=== PATIENT | female | born 1980 | race Caucasian/White ===

== ENCOUNTER 2016-10-23 10:11 | Emergency (ER) | payer MEDICAID ==
--- NOTE | 2016-10-23 10:48 | EDM.PDOC ---
ED HPI ENT - General Chief Complaint: ENT Problem Stated Complaint: ABSCESS TOOTH Time Seen by Provider: 10/23/16 10:25 Source: Reports: Patient History Limitations: Reports: No limitations - History of Present Illness INITIAL COMMENTS - FREE TEXT/NARRATIVE: 36 years old smoker come to the ed with a 1 week of swelling of r jaw pain. Pt was seen by her PMD who prescribed Amoxicillin, which did not help. Pt's car broke down and she can not go to her Dentist in [place]. No N/V/D Pt is currently . Pt denied other acute medical issues at this time. Symptom Onset Date: 10/14/16 Symptom Onset Time: 10:00 Timing/Duration: Reports: Week(s): Severity: moderate Quality: Reports: Other (jaw) Improves with: Reports: Cold therapy Worsens with: Reports: Movement Associated symptoms: Reports: denies other symptoms - Related Data Allergies/ADRs: Allergies Allergy/AdvReac Type Severity Reaction Status Date / Time propoxyphene napsylate Allergy Confusion Verified 10/23/16 10:22 [From Darvocet-N] sumatriptan [From Imitrex] Allergy Difficulty Verified 10/23/16 10:22 Breathing sumatriptan succinate Allergy Difficulty Verified 10/23/16 10:22 [From Imitrex] Breathing Home Meds: Home Meds Ibuprofen 800 mg PO TID 04/01/15 [History] Vit37/Iron/Folic Acid [Prenata] 1 tab PO DAILY 04/01/15 [History] FLUoxetine [PROzac] 20 mg PO DAILY 09/16/16 [History] Amoxicillin 500 mg PO TID #30 tablet 10/23/16 [Rx] Omeprazole 40 mg PO DAILY 10/23/16 [History] Past Medical History 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: Reports: 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: Musculoskeletal History: Reports: Arthritis, Fibromyalgia Other Musculoskeletal History: knee scope Neurological History: Reports: None Psychiatric History: Reports: Addiction, Anxiety, Depression Endocrine/Metabolic History: Reports: Diabetes, gestational, Other (see below) Other Endocrine/Metabolic History: had with last Social & Family History - Family History Family Medical History: Noncontributory - Tobacco Use Smoking Status *Q: Current Every Day Smoker Years of Tobacco use: 20 Packs/Tins Daily: 0.5 Used Tobacco, but Quit: No Second Hand Smoke Exposure: Yes - Caffeine Use Caffeine Use: Reports: Coffee - Recreational Drug Use Recreational Drug Use: No ED ROS ENT - Review of Systems Review Of Systems: See Below Constitutional: Reports: no symptoms HEENT: Reports: Dental pain Respiratory: Reports: No Symptoms Cardiovascular: Reports: No symptoms Endocrine: Reports: no symptoms GI/Abdominal: Reports: No symptoms : Reports: no symptoms Musculoskeletal: Reports: no symptoms Skin: Reports: no symptoms Neurological: Reports: No Symptoms Psychiatric: Reports: No symptoms Hematologic/Lymphatic: Reports: no symptoms Immunologic: Reports: no symptoms ED EXAM, ENT - Physical Exam Exam: See Below Exam Limited By: No limitations General Appearance: alert, WD/WN, mild distress Eye Exam: bilateral eye: normal inspection Ears: normal external exam, normal canal, hearing grossly normal Nose: normal inspection, normal mucousa, no blood Mouth/Throat: Gum swelling Head: atraumatic, normocephalic Neck: normal inspection, supple, non-tender, full range of motion Respiratory/Chest: no respiratory distress, lungs clear, normal breath sounds Cardiovascular: normal peripheral pulses, regular rate, rhythm, no edema, no gallop GI/Abdominal: normal bowel sounds, soft, non tender, no organomegaly (Female) Exam: Deferred Rectal (Female) Exam: Deferred Back: normal inspection, full range of motion Extremities: normal inspection, normal range of motion, non-tender Neurological: alert, oriented, CN II-XII intact, normal cognition, normal gait Course - Vital Signs Text/Narrative:: 36 years old smoker come to the ed with a 1 week of swelling of r jaw pain. Pt was seen by her PMD who prescribed Amoxicillin, which did not help. Pt's car broke down and she can not go to her Dentist in [place]. No N/V/D Pt is currently . Pt denied other acute medical issues at this time. PE: swelling of r ant jaw, suggest tooth abscess 1 molar Impression: Tooth abscess Plan: D/C with instructions Last Recorded V/S: Last Vital Signs Temp 36.7 C 10/23/16 10:25 Pulse 87 10/23/16 10:25 Resp 16 10/23/16 10:25 BP 123/107 H 10/23/16 10:25 Pulse Ox 100 10/23/16 10:25 Departure - Departure Time of Disposition: 10:49 Disposition: Home, Self-Care 01 Condition: good Clinical Impression: Mandibular swelling Prescriptions: Amoxicillin 500 mg PO TID #30 tablet Instructions: Smoking Hazards, Dental Abscess, Smoking Cessation, Tips for Success Referrals: Rigoberto Jack MD [Primary Care Provider] - Forms: ED Department Discharge Additional Instructions: Please follow up with your dentist a.s.a.p. Please apply ice to jaw, please quit tobacco use, take tylenol/motrin for pain. Please come back to the ed if your symptoms get worse acutely. Please avoid narcotics while breast feeding.
[2016-10-23 11:26] VITALS: BP 143/90
== END 2016-10-23 11:05 | disposition home or self-care (01) ==
LOC: FB.ED 10:11
DX: K04.7 Periapical abscess without sinus (principal); K21.9 Gastro-esophageal reflux disease without esophagitis; F41.9 Anxiety disorder, unspecified; F32.9 Major depressive disorder, single episode, unspecified; M19.90 Unspecified osteoarthritis, unspecified site; F17.210 Nicotine dependence, cigarettes, uncomplicated; Z88.8 Allergy status to other drugs, medicaments and biological substances; Z79.899 Other long term (current) drug therapy
CPT/HCPCS: 99282

== ENCOUNTER 2018-10-17 05:47 | Emergency (ER) | payer SELFPAY ==
[2018-10-17 05:59] VITALS: BP 150/91
[2018-10-17] MEDS ORDERED: Acetaminophen/Codeine 300-30 MG Tab PO ONE (06:17)
--- NOTE | 2018-10-17 11:48 | ER ---
DATE SEEN: 10/17/2018 TIME SEEN: 6:15. CHIEF COMPLAINT: Tooth pain. HISTORY OF PRESENT ILLNESS: This is a 38-year-old female, complaining of tooth pain on the right lower jaw. This has gone on for several days. She claims to have a dentist appointment on Monday to have it pulled. Pain is moderate to severe. Not responding to [id number] treatment options. ALLERGIES: Imitrex, Darvocet. SOCIAL HISTORY: Smoker. MEDICATIONS: Reviewed. REVIEW OF SYSTEMS: No sore throat. No headache. PHYSICAL EXAMINATION: GENERAL: Very anxious. VITAL SIGNS: Blood pressure is 150/91, temperature 97.5. HEENT: Oral exam: There is a large cavity with redness of the gum on the right lower jaw area. IMPRESSION: Dental abscess. TREATMENT: 1. One tablet of Tylenol No. 3 to use b.i.d. today, given only 2 tablets. 2. Amoxicillin 500 mg p.o. t.i.d. Follow up with dentist as previously appointed. TIME OF DISCHARGE: 6:20. /[id number] [place]
== END 2018-10-17 06:35 | disposition home or self-care (01) ==
LOC: FB.ED 05:47
DX: K04.7 Periapical abscess without sinus (principal); F17.290 Nicotine dependence, other tobacco product, uncomplicated; Z88.8 Allergy status to other drugs, medicaments and biological substances
CPT/HCPCS: 99282; A9270

== ENCOUNTER 2019-03-22 01:13 | Emergency (ER) | payer MEDICAID ==
[2019-03-22 01:26] VITALS: BP 140/98
[2019-03-22] MEDS ORDERED: Clindamycin HCl 150 MG Cap PO ONE (01:54)
[2019-03-22] MEDS ORDERED: Amoxicillin/Clavulanate K 875-125 MG Tab PO ONE (01:54)
[2019-03-22] MEDS ORDERED: Acetaminophen 500 MG Tab PO ONE (01:58)
[2019-03-22] MEDS ORDERED: Ibuprofen 800 MG Tab PO ONE (02:00)
--- NOTE | 2019-03-22 02:12 | EDM.PDOC ---
ED HPI GENERAL MEDICAL PROBLEM - General Chief Complaint: General Stated Complaint: ABSCESS TOOTH Time Seen by Provider: 03/22/19 01:35 Source of Information: Reports: Patient Left Lower Jaw Pain Score (Numeric/FACES): 10 - Related Data Allergies Allergy/AdvReac Type Severity Reaction Status Date / Time propoxyphene napsylate Allergy Confusion Verified 10/17/18 05:55 [From Darvocet-N] sumatriptan [From Imitrex] Allergy Difficulty Verified 10/17/18 05:55 Breathing sumatriptan succinate Allergy Difficulty Verified 10/17/18 05:55 [From Imitrex] Breathing Home Meds: Home Meds Ibuprofen 800 mg PO TID 04/01/15 [History] FLUoxetine [PROzac] 40 mg PO DAILY 09/16/16 [History] Omeprazole 40 mg PO DAILY 10/23/16 [History] busPIRone [Buspar] 15 mg PO BID 10/17/18 [History] hydrOXYzine HCl [Atarax] 25 mg PO BID 10/17/18 [History] Past Medical History HEENT History: Reports: Other (See Below) Other HEENT History: in with swollen L lower jaw Respiratory History: Reports: Other (See Below) Other Respiratory History: is a smoker, trying to quit 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: Reports: 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: Musculoskeletal History: Reports: Arthritis, Fracture, Fibromyalgia Other Musculoskeletal History: hx fx L femur Neurological History: Reports: Concussion, Migraines Psychiatric History: Reports: Addiction, Anxiety, Depression, Psych Hospitalization(s), Suicide Attempt Other Psychiatric History: hx meth abuse, Endocrine/Metabolic History: Reports: Diabetes, Gestational, Obesity/BMI 30+, Other (See Below) Other Endocrine/Metabolic History: had with last Oncologic (Cancer) History: Reports: Other (See Below) Other Oncologic History: had some abnormal cervical cells, lazered off Dermatologic History: Reports: None, Other (See Below) - Infectious Disease History Infectious Disease History: Reports: Chicken Pox - Past Surgical History HEENT Surgical History: Reports: Oral Surgery Female Surgical History: Reports: Other (See Below) Other Female Surgeries/Procedures: oast hx lazer work on cervix Musculoskeletal Surgical History: Reports: Arthroscopic Knee Other Musculoskeletal Surgeries/Procedures:: L knee scope Social & Family History - Family History Family Medical History: Noncontributory - Tobacco Use Smoking Status *Q: Current Every Day Smoker Years of Tobacco use: 25 Packs/Tins Daily: 0.2 Second Hand Smoke Exposure: Yes - Caffeine Use Caffeine Use: Reports: Soda Other Caffeine Use: 2 a day - Recreational Drug Use Recreational Drug Use: No ED ROS GENERAL - Review of Systems Review Of Systems: See Below Constitutional: Reports: No Symptoms HEENT: Reports: Dental Pain Respiratory: Reports: No Symptoms Cardiovascular: Reports: No Symptoms Endocrine: Reports: No Symptoms GI/Abdominal: Reports: No Symptoms : Reports: No Symptoms Musculoskeletal: Reports: No Symptoms Skin: Reports: No Symptoms Neurological: Reports: No Symptoms Psychiatric: Reports: No Symptoms ED EXAM, GENERAL - Physical Exam Exam: See Below Exam Limited By: No Limitations General Appearance: Alert, No Apparent Distress Nose: Normal Inspection, Normal Mucosa, No Blood Throat/Mouth: Other (multiple dental caries,abscess left ) Head: Facial Swelling Neck: Normal Inspection, Supple, Tender Lateral Respiratory/Chest: No Respiratory Distress, Lungs Clear Cardiovascular: Normal Peripheral Pulses, Regular Rate, Rhythm, No Edema GI/Abdominal: Normal Bowel Sounds, Soft, Non-Tender Course - Vital Signs Text/Narrative:: ibuorifen 800 mg po x1 [id number] mg po x1 clindamycin 600 mg po x1 augmentin 875 mg po x1 Last Recorded V/S: Last Vital Signs Temp 36.7 C 03/22/19 01:24 Pulse 124 H 03/22/19 01:24 Resp 18 03/22/19 01:24 BP 140/98 H 03/22/19 01:24 Pulse Ox 98 03/22/19 01:24 - Orders/Labs/Meds Meds: Medications Discontinued Medications Generic Name Dose Route Start Last Admin Trade Name Freq PRN Reason Stop Dose Admin Acetaminophen 1,000 mg 03/22/19 01:58 Tylenol Extra Strength PO 03/22/19 01:59 ONETIME ONE Amoxicillin/Clavulanate Potassium 1 tab 03/22/19 01:54 Augmentin 875 Mg/125 Mg PO 03/22/19 01:55 ONETIME ONE Clindamycin HCl 600 mg 03/22/19 01:54 Cleocin PO 03/22/19 01:55 ONETIME ONE Ibuprofen 800 mg 03/22/19 02:00 Motrin PO 03/22/19 02:01 ONETIME ONE Departure - Departure Time of Disposition: 02:10 Disposition: Home, Self-Care 01 Condition: Good Clinical Impression: Abscess, dental, Pain, dental - Discharge Information Referrals: Rigoberto Jack MD [Primary Care Provider] -
== END 2019-03-22 02:45 | disposition home or self-care (01) ==
LOC: FB.ED 01:13
DX: K04.7 Periapical abscess without sinus (principal); F17.210 Nicotine dependence, cigarettes, uncomplicated; F41.9 Anxiety disorder, unspecified; F32.9 Major depressive disorder, single episode, unspecified; K21.9 Gastro-esophageal reflux disease without esophagitis; Z79.899 Other long term (current) drug therapy; Z88.8 Allergy status to other drugs, medicaments and biological substances
CPT/HCPCS: 99282; A9270

== ENCOUNTER 2023-05-12 11:04 | Emergency (ER) | payer MEDICAID ==
[2023-05-12] MEDS ORDERED: Lidocaine 1% 20 ML MDV SUBCUT ONE (11:48)
[2023-05-12 12:12] LABS: BASOPHILS ABSOLUTE AUTO 0.1 x10-3/uL (0.0-0.1); BASOPHILS PERCENT AUTO 0.7 % (0.2-1.5); EOSINOPHILS ABSOLUTE AUTO 0.3 x10-3/uL (0.0-0.8); EOSINOPHILS PERCENT AUTO 3.6 % (0.6-8.1); HEMATOCRIT 37.7 % (34.2-48.2); HEMOGLOBIN 12.9 g/dL (11.4-15.5); LYMPHOCYTES ABSOLUTE AUTO 1.6 x10-3/uL (1.0-4.4); LYMPHOCYTES PERCENT AUTO 17.6 % (18.4-52.1); MEAN CORPUSCULAR HEMOGLOBIN 32.1 pg (23.9-33.9); MEAN CORPUSCULAR HGB CONC 34.4 g/dL (31.9-34.8); MEAN CORPUSCULAR VOLUME 93.4 fL (76.7-100.5); MEAN PLATELET VOLUME 7.7 fL (7.1-12.4); MONOCYTES ABSOLUTE AUTO 0.8 x10-3/uL (0.3-1.0); MONOCYTES PERCENT AUTO 8.4 % (4.4-15.7); NEUTROPHILS ABSOLUTE AUTO 6.3 x10-3/uL (1.5-6.3); NEUTROPHILS PERCENT AUTO 69.7 % (30.8-76.2); PLATELET COUNT,PLT 301 x10(3)uL (151-488); RED BLOOD CELL COUNT 4.03 x10(6)uL (3.60-5.20); RED CELL DISTRIBUTION WIDTH 13.6 % (12.3-16.5)
[2023-05-12 12:18] LABS: BLOOD UREA NITROGEN,BUN 14 mg/dL (7-18); BUN/CREATININE RATIO 17.5 (9-20); CALCIUM 8.7 mg/dL (8.6-10.2); CARBON DIOXIDE,CO2 24 mmol/L (21-32); CHLORIDE,CL 105 mmol/L (100-110); CREATININE 0.8 mg/dL (0.55-1.02); ESTIMATED GFR 94 mL/min (>60); GLUCOSE RANDOM 112 mg/dL (80-116); POTASSIUM,K 3.6 mmol/L (3.5-5.3); SODIUM,NA 138 mmol/L (135-145)
[2023-05-12 12:24] LABS: ALANINE AMINOTRANSFERASE,ALT 27 U/L (12-36); ALBUMIN 3.6 g/dL (3.5-5.2); ALKALINE PHOSPHATASE 105 IU/L (56-112); ASPARTATE AMNIOTRANSFERASE,AST 13 IU/L (5-25); BILIRUBIN TOTAL 0.3 mg/dL (0.1-1.3); PROTEIN TOTAL,TP 7.3 g/dL (6.0-8.0)
[2023-05-12] MEDS ORDERED: Sulfamethoxazole/Trimethoprim 800-160 MG Tab PO ONE (12:44)
[2023-05-12] MEDS ORDERED: cefTRIAXone 1 GM Vial IM ONE (12:44)
[2023-05-12 14:01] VITALS: BP 147/86; PULSE 77
== END 2023-05-12 13:51 | disposition home or self-care (01) ==
LOC: FB.ED 11:04
DX: L02.413 Cutaneous abscess of right upper limb (principal); F19.10 Other psychoactive substance abuse, uncomplicated; E66.9 Obesity, unspecified; F17.200 Nicotine dependence, unspecified, uncomplicated; Z68.30 Body mass index [BMI] 30.0-30.9, adult; Z88.8 Allergy status to other drugs, medicaments and biological substances
CPT/HCPCS: 10060; 36415; 80053; 85025; 86140; 87070; 87077; 87186; 87205; 96372; 99283; A9270; J0696